=== PATIENT | male | born 1985 | race Caucasian/White ===

== ENCOUNTER 2022-07-14 12:51 | Emergency (ER) | payer SELFPAY ==
[~2022-07-14] VITALS: Ht 193 cm; Wt 129.0 kg
[2022-07-14 12:55] VITALS: BP 166/98
--- NOTE | 2022-07-14 13:24 | ED Lower Extremity ---
General Chief Complaint: Lower Extremity Stated Complaint: LT FOOT PAIN Nursing Triage Note: PT AMB TO TRIAGE, PT CO OF L FOOT PAIN THAT STARTED APPROX 11 DAYS AGO WHEN TAKING A STEP. RATES PAIN 10/10 WHEN STEPS CERTAIN WAYS Source: patient Exam Limitations: no limitations (SHAUNA CANADA APRN) History of Present Illness Date Seen by Provider: Jul 14, 2022 Time Seen by Provider: 13:10 Initial Comments 36-year-old male presents to the ER with complaints of left foot pain July 03. He states the pain started after he took a step. Complains of pain in the top part of his foot. States pain is not constant, only hurts with certain movements. Reports that using an [place] bandage or wearing a shoe makes the pain worse. He states that he was seen at the [place] urgent [facility] on July 05. They did an x-ray which did not show any fracture. They told him that they think it is a tendon injury. He states he has been doing everything that they told him, but the pain has gotten worse. He is concerned about working since he has to be on his feet all day. (SHAUNA CANADA APRN) Allergies and Home Medications Allergies Coded Allergies: naproxen (Verified Allergy, Unknown, RASH, 07/14/22) Patient Home Medication List Home Medication List Reviewed: Yes (SHAUNA CANADA APRN) Review of Systems Constitutional: no symptoms reported Musculoskeletal: see HPI (SHAUNA CANADA APRN) Past Dbntwho-Gpmmrl-Zetftu Hx Patient Social History Tobacco Use?: No Substance use?: No Alcohol Use?: Yes Alcohol type: Hard Liquor Alcohol Frequency: Once in a while Pt feels they are or have been: No (SHAUNA CANADA APRN) Past Medical History Surgery/Hospitalization HX: GERD (SHAUNA CANADA APRN) Physical Exam Vital Signs Vital Signs - First Documented 07/14/22 12:55 Temp 36.6 Pulse 85 Resp 16 B/P (MAP) 166/98 (120) Pulse Ox 97 O2 Delivery Room Air (CRISTAL CRISTOBAL MD) Vital Signs Capillary Refill : Less Than 3 Seconds (SHAUNA CANADA APRN) Height, Weight, BMI Height: '" Weight: lbs. oz. kg; 34.00 BMI Method: General Appearance: WD/WN, no apparent distress Neck: supple, normal inspection Cardiovascular: regular rate, rhythm Respiratory: lungs clear, normal breath sounds, no respiratory distress, no accessory muscle use Feet: left foot non-tender, left foot normal inspection, left foot normal range of motion, left foot no evidence of injury, left foot other (Cap refill less than 2 seconds, sensation intact distally, pulses intact, no tenderness to palpation) Neurologic/Psychiatric: alert, normal mood/affect Skin: normal color, warm/dry (SHAUNA CANADA APRN) Progress/Results/Core Measures Results/Orders Vital Signs/I&O 07/14/22 12:55 Temp 36.6 Pulse 85 Resp 16 B/P (MAP) 166/98 (120) Pulse Ox 97 O2 Delivery Room Air (CRISTAL CRISTOBAL MD) Blood Pressure Mean: 120 Progress Progress Note : Progress Note Patient seen and evaluated, resting comfortably in recliner, no acute distress. Based on exam and symptoms, x-ray of foot ordered. X-ray negative for acute osseous abnormality. Results discussed with patient. Patient instructed to rest, stay off foot, take ibuprofen, wear supportive shoes that are not too tight, and to ice foot. Patient asked for work note, will give him a note stating light duty and to stay off foot. Patient agreeable to discharge plan. Discharge instructions and return precautions provided. (SHAUNA CANADA APRN) Departure Impression Primary Impression: Strain of tendon of foot Disposition: 01 HOME, SELF-CARE Condition: Stable Departure-Patient Inst. Decision time for Depature: 13:47 (SHAUNA CANADA APRN) Referrals: NO,LOCAL PHYSICIAN (PCP/Family) Primary Care Physician Patient Instructions: Tendinopathy (DC) Add. Discharge Instructions: Rest your foot is much as possible, stay off of it. Ice your foot up to 20 minutes at a time several times a day. Wear supportive shoes that are not too tight. Establish with a primary care provider so that this can be evaluated if pain continues. Return for any new, concerning, or worsening symptoms. All discharge instructions reviewed with patient and/or family. Voiced understanding. Work/School Note: Work Release Form Date Seen in the Emergency Department: Jul 14, 2022 Return to Work: Jul 15, 2022 Other Restrictions Listed Below: Light duty for 1 week, no standing on left foot. ATTENDING PHYSICIAN NOTE: I was physically present as attending physician in the emergency department during the care of this patient, but I was not directly involved in the decision making or delivery of care for this patient. (CRISTAL CRISTOBAL MD) SHAUNA CANADA APRN Jul 14, 2022 13:24 CRISTAL CRISTOBAL MD Jul 18, 2022 13:30
--- NOTE | 2022-07-14 13:38 | Diagnostic Imaging Report ---
INDICATION: Left foot pain. FINDINGS: Three views of the left foot show no fracture, dislocation or other acute abnormalities. IMPRESSION: Negative left foot. Dictated by: Dictated on workstation # [id number]
== END 2022-07-14 13:55 | disposition home or self-care (01) ==
LOC: ER 12:56
DX: S96.912A Strain of unspecified muscle and tendon at ankle and foot level, left foot, initial encounter (principal); X58.XXXA Exposure to other specified factors, initial encounter
CPT/HCPCS: 73630